=== PATIENT | male | born 2000 | race Caucasian/White ===

== ENCOUNTER 2019-11-04 23:00 | Emergency (ER) | payer OTHER ==
[~2019-11-04] VITALS: Ht 185.4 cm; Wt 68.0 kg
[2019-11-04] MEDS ORDERED: DEPAKOTE ER500 M1 PO (23:24)
[2019-11-04] MEDS ORDERED: SERTRALINE HCL50 MG PO (23:24)
[2019-11-04 23:52] LABS: ABSOLUTE BASOPHILS 0.1 thou/uL (0.0-0.2); ABSOLUTE EOSINOPHILS 0.1 thou/uL (0.0-0.7); ABSOLUTE LYMPHOCYTES 2.9 thou/uL (0.8-5.3); ABSOLUTE MONOCYTES 0.6 thou/uL (0.0-1.2); ABSOLUTE NEUTROPHILS 3.1 thou/uL (1.6-8.1); BASOPHILS 0.9 %; EOSINOPHILS 1.9 %; HEMATOCRIT 43.1 % (42.0-52.0); LYMPHOCYTES 42.6 %; MCH 30.8 pg (26.0-34.0); MCHC 34.7 g/dL (28.0-37.0); MCV 88.9 fL (80.0-100.0); MPV 8.4 fl. (7.2-11.1); NUCLEATED RBCS 0 /100WBC; PLATELET COUNT* 250 thou/uL (150-400); POLYS 45.6 %; RBC 4.85 mil/uL (4.50-6.00); RDW-CV 13.2 % (10.5-14.5); WBC 6.8 thou/uL (4.0-11.0)
[2019-11-04 23:58] LABS: CALCIUM 8.6 mg/dL (8.5-10.1); POTASSIUM 3.9 mmol/L (3.5-5.1)
[2019-11-05 00:02] LABS: ALBUMIN 4.3 g/dL (3.4-5.0); MAGNESIUM 1.7 mg/dL (1.8-2.4); TOTAL BILIRUBIN 0.4 mg/dL (<0.1-1.0); TOTAL PROTEIN 7.5 g/dL (6.4-8.2)
[2019-11-05] MEDS ORDERED: DEPAKOTE ER500 M1 PO (01:16)
[2019-11-05 01:42] VITALS: BP 127/65
== END 2019-11-05 01:42 | disposition home or self-care (01) ==
LOC: M.ERS 23:00
PROVIDERS: Personal Emergency Response Attendant
DX: G25.1 Drug-induced tremor (principal); F41.9 Anxiety disorder, unspecified; F32.9 Major depressive disorder, single episode, unspecified

== ENCOUNTER 2020-02-08 17:36 | Emergency (ER) | payer OTHER ==
[~2020-02-08] VITALS: Ht 185.4 cm; Wt 77.1 kg
[~2020-02-08 17:36] MED LIST: DEPAKOTE ER500 M1 PO; SERTRALINE HCL50 MG PO
[2020-02-08 17:43] VITALS: BP 126/79
[2020-02-08] MEDS ORDERED: NAPROSYN500 MG PO (18:03)
== END 2020-02-08 18:22 | disposition home or self-care (01) ==
LOC: M.ERS 17:36
DX: T25.222A Burn of second degree of left foot, initial encounter (principal); T31.0 Burns involving less than 10% of body surface; X12.XXXA Contact with other hot fluids, initial encounter; Y93.89 Activity, other specified; Y92.89 Other specified places as the place of occurrence of the external cause; Y99.8 Other external cause status

== ENCOUNTER 2020-02-26 21:27 | Emergency (ER) | payer OTHER ==
[~2020-02-26] VITALS: Ht 185.4 cm; Wt 74.8 kg
[~2020-02-26 21:27] MED LIST changes: +NAPROSYN500 MG PO
[2020-02-26] MEDS ORDERED: PREDNISONE50 MG PO (23:36)
[2020-02-26] MEDS ORDERED: PROAIR HFA8.5 GM INH (23:36)
[2020-02-26] MEDS ORDERED: HYDROCODONE-ACE15 ML PO (23:36)
[2020-02-26 23:49] VITALS: BP 132/62
== END 2020-02-26 23:50 | disposition home or self-care (01) ==
LOC: M.ERS 21:27
DX: R05 Cough (principal); R11.10 Vomiting, unspecified

== ENCOUNTER 2020-03-15 00:22 | Emergency (ER) | payer OTHER ==
[~2020-03-15] VITALS: Ht 167.6 cm; Wt 63.5 kg
[~2020-03-15 00:22] MED LIST changes: +HYDROCODONE-ACE15 ML PO; +PREDNISONE50 MG PO; +PROAIR HFA8.5 GM INH
[2020-03-15] MEDS ORDERED: LORCET 5-325 M1 EACH PO (01:42)
[2020-03-15] MEDS ORDERED: KEFLEX500 M2 PO (01:42)
[2020-03-15] MEDS ORDERED: SSD CREAM 1% 5050 GM TOP (01:42)
[2020-03-15 01:52] VITALS: BP 122/62
== END 2020-03-15 01:52 | disposition home or self-care (01) ==
LOC: M.ERS 00:22
DX: T23.141A Burn of first degree of multiple right fingers (nail), including thumb, initial encounter (principal); T31.0 Burns involving less than 10% of body surface; F12.10 Cannabis abuse, uncomplicated; X19.XXXA Contact with other heat and hot substances, initial encounter; Y93.89 Activity, other specified; Y92.89 Other specified places as the place of occurrence of the external cause; Y99.8 Other external cause status

== ENCOUNTER 2020-11-11 16:58 | Emergency (ER) | payer OTHER ==
[~2020-11-11] VITALS: Ht 185.4 cm; Wt 74.8 kg
[~2020-11-11 16:58] MED LIST changes: +KEFLEX500 M2 PO; +LORCET 5-325 M1 EACH PO; +SSD CREAM 1% 5050 GM TOP
[2020-11-11] MEDS ORDERED: IBUPROFEN 600600 M1 PO (17:43)
[2020-11-11 18:12] VITALS: BP 136/65
== END 2020-11-11 18:14 | disposition home or self-care (01) ==
LOC: M.ERS 16:58
DX: S60.221A Contusion of right hand, initial encounter (principal); R60.9 Edema, unspecified; W22.8XXA Striking against or struck by other objects, initial encounter; Y93.89 Activity, other specified; Y92.89 Other specified places as the place of occurrence of the external cause; Y99.8 Other external cause status

== ENCOUNTER 2021-03-09 23:38 | Emergency (ER) | payer OTHER ==
[~2021-03-09] VITALS: Ht 185.4 cm; Wt 83.9 kg
[~2021-03-09 23:38] MED LIST changes: +IBUPROFEN 600600 M1 PO
[2021-03-10] MEDS ORDERED: HYDROCODON-ACE1 EAC8 PO (00:07)
[2021-03-10 00:18] VITALS: BP 130/70
== END 2021-03-10 00:19 | disposition home or self-care (01) ==
LOC: M.ERS 23:38
DX: S62.397A Other fracture of fifth metacarpal bone, left hand, initial encounter for closed fracture (principal); W23.0XXA Caught, crushed, jammed, or pinched between moving objects, initial encounter; Y93.89 Activity, other specified; Y92.89 Other specified places as the place of occurrence of the external cause; Y99.8 Other external cause status